=== PATIENT | male | born 1990 | race Caucasian/White ===

== ENCOUNTER 2021-03-04 22:52 | Inpatient (IN) | payer BC, SELFPAY ==
[2021-03-04 22:53] VITALS: BP 153/75; PULSE 127; RESP 16; TEMP 36; O2SAT 91; BMI 38.7
[2021-03-05] VITALS (19 sets, daily range): BP systolic 108–165; BP diastolic 66–101; PULSE 89–118; RESP 18–32; TEMP 35.7–37.4; O2SAT 88–97; BMI 38.5
--- NOTE | 2021-03-05 00:52 | EDS_ITS ---
HPI History of Present Illness Chief Complaint: General Illness Narrative Narrative: Patient presents with Covid-like illness. He stated over the last 4 days he has had muscle aches fatigue intermittent fevers nausea vomiting and diarrhea. Has had a mild sore throat. Has had a mild cough. He stated he has very mild short of breath. No sick contacts. Had a negative Covid test 3 days ago 1 day after the symptoms started. Denies any chronic medical problems. Has had multiple episodes of emesis today. He has had several loose bowel movements. PFSH PFS Home Medications NK 03/05/21 [History Last Taken Unknown] Allergy/AdvReac Type Severity Reaction Status Date / Time No Known Allergies Allergy Verified 03/04/21 22:52 Social History Smoking Status: Never smoker ROS ROS ED ROS Narrative ROS General: See HPI Eyes: Denies visual changes, blurred vision, double vision ENT: See HPI Cardiovascular: Denies chest pain, palpitations, heart racing Respiratory: See HPI GI: See HPI : Denies dysuria, hematuria, frequency Musculoskeletal: See HPI Skin: Denies rash, abscess, abrasions Neuro: Denies headache, see HPI Psych: Denies depression, anxiety Endo: Denies polyuria, polydipsia, polyphagia Heme: Denies easy bruising, easy bleeding, lymphadenopathy Allergy: Denies hives, swelling EXAM Physical Exam Narrative Exam Narrative: Vital signs reviewed General: Well-nourished well-developed. He appears sweaty. Head: Normocephalic atraumatic Eyes: Pupils equal round and reactive to light extraocular movements intact ENT: TMs clear no hemotympanum no trauma Neck: Nontender full range of motion Cardiovascular: Regular tachycardia with normal no murmurs normal S1-S2 Respiratory: No distress clear to auscultation bilaterally chest nontender Abdomen: Soft nontender nondistended normal bowel sounds no masses Back: Nontender no CVA tenderness Extremities: Nontender active range of motion ?4 extremities no trauma Skin: Normal color no trauma Neuro alert oriented cranial nerves II through XII intact normal strength sensation reflexes Const Vital Signs: 03/04/21 22:53 03/05/21 00:44 03/05/21 01:00 Temperature 96.8 F L Temperature Source Temporal Pulse Rate 127 H Respiratory Rate 16 20 H Respiratory Effort Normal Non-Labored Respiratory Pattern Normal Blood Pressure 153/75 H Blood Pressure Mean 101 Pulse Ox 91 Oxygen Delivery Method Room Air Room Air Oxygen Flow Rate (L/min) 03/05/21 04:09 03/05/21 04:10 Temperature Temperature Source Pulse Rate 105 H Respiratory Rate 18 Respiratory Effort Respiratory Pattern Blood Pressure 108/70 Blood Pressure Mean 82 Pulse Ox 88 95 Oxygen Delivery Method Room Air Nasal Cannula Oxygen Flow Rate (L/min) 2 MDM MDM MDM Narrative Medical decision making narrative: IV established given IV fluids. Given Zofran and Toradol. Lab work and chest x-ray obtained. Lab work shows normal CBC. Glucose is 220. Covid antigen negative. Covid antibody positive. Chest x-ray shows pneumonitis picture. Requiring oxygen via nasal cannula to keep his pulse ox above 90% as he dipped down into 88 %. Heart rate came down to 105 after treatment with IV fluids. Resting more comfortably. Due to his hypoxia and Covid pneumonitis discussed with the hospitalist for admission Lab Data Labs: Laboratory Results - last 24 hr 03/05/21 03/05/21 03/05/21 00:50 00:50 02:02 WBC 6.1 RBC 5.45 Hgb 15.8 Hct 46.4 MCV 85.1 MCH 29.0 MCHC 34.1 RDW Std Deviation 40.0 RDW Coeff of Aime 13.1 Plt Count 156 MPV 9.3 Immature Gran % (Auto) 1.000 H Neut % (Auto) 88.1 H Lymph % (Auto) 6.9 L [place] % (Auto) 3.6 Eos % (Auto) 0.2 Baso % (Auto) 0.2 Absolute Neuts (auto) 5.4 Absolute Lymphs (auto) 0.42 L Nucleated RBC % 0 Sodium 139 Potassium 3.5 Chloride 104 Carbon Dioxide 27.0 Anion Gap 8 BUN 11 Creatinine 0.97 Estim Creat Clear Calc 106.75 Est GFR (MDRD) Af Amer 116 Est GFR (MDRD) Non-Af 96 BUN/Creatinine Ratio 11.3 Glucose 220 H Calcium 8.9 Total Bilirubin 0.90 AST 29 ALT 33 Alkaline Phosphatase 102 Total Protein 8.0 Albumin 3.5 Globulin 4.5 H Albumin/Globulin Ratio 0.8 L Lipase 78 COVID-19 (SANDRA) Detected Radiography Diagnostic Testing: Radiology Impression Chest X-Ray 03/05/21 01:00 IMPRESSION: Multifocal pneumonitis as described. Electronically Signed: Chelsey Archer MD at 1:41 EDT , Service support , Discharge Plan Triage Chief Complaint: General Illness ED Provider: Bg Watkins Dx/Rx/DC Orders Clinical Impression: Pneumonia due to coronavirus disease 2019, Hypoxia Prescriptions: No Action NK RF: 0 Primary Care Provider: Care Physician,No Primary Referrals: Care Physician,No Primary [Primary Care Provider] - Disposition Disposition: Acute Care Hospital [facility]
--- NOTE | 2021-03-05 01:00 | RAD_ITS ---
STUDY: X-RAY CHEST REASON FOR EXAM: Male, 30 years old. cough TECHNIQUE: Single AP portable view of the chest. COMPARISON: None. FINDINGS: The lungs are underexpanded with bilateral perihilar and basilar opacities consistent with multifocal pneumonitis. There is no demonstrated pleural abnormality. There is borderline cardiomegaly. Normal mediastinum and elena. Normal visualized pulmonary arteries. Normal visualized aortic arch and descending thoracic aorta. Normal visualized thoracic spine. Normal visualized ribs, clavicles, and shoulders. There is no demonstrated abnormality of the visualized soft tissue structures of the upper abdomen. RAD/Chest 1 View (Portable) IMPRESSION: Multifocal pneumonitis as described. Electronically Signed: Chelsey Archer MD at 1:41 EDT , Service support ,
[2021-03-05 01:01] LABS: Absolute Lymphocyte Count 0.42 X10^3/uL (0.83-4.51); Absolute Neutrophil Count 5.4 X10^3/uL (2.0-7.7); Basophil# 0.01 X10^3/uL; Basophil% 0.2 % (0-1); Differential Indicated SCAN CRITERIA MET; Eosinophil# 0.01 X10^3/uL; Eosinophils% 0.2 % (0-5); Hematocrit 46.4 % (40-54); Hemoglobin 15.8 g/dL (13.0-16.5); Lymphocyte # 0.42 X10^3/ul (0.83-4.51); Lymphocyte % 6.9 % (19-41); Mean Corp Hgb Conc 34.1 g/dL (32-36); Mean Corpuscular Volume 85.1 fL (80-94); Mean Platelet Vol. 9.3 fl (6.2-12.0); Monocyte# 0.22 X10^3/uL; Monocyte% 3.6 % (0-10); NRBC Flagged by Analyzer 0 % (0-5); Neutrophil # 5.39 X10^3/uL (2.7-7.7); Neutrophil % 88.1 % (47-70); POSITIVE DIFFERENTIAL YES; Platelet Count 156 K/mm3 (150-450); RBC Distribution Width CV 13.1 % (11.6-14.6); Red Blood Count 5.45 M/mm3 (4.6-6.2); White Blood Count 6.1 K/mm3 (4.4-11.0)
[2021-03-05] MEDS: 0.9% Normal Saline 1,000 ML 999 ML IV ×2 (01:09→03:09)
[2021-03-05] MEDS: Ketorolac 15 MG/ML Vial IV (01:09)
[2021-03-05] MEDS: Ondansetron 4 MG/2 ML Vial IV ×2 (01:09→18:17)
[2021-03-05 01:19] LABS: ALB/GLOB Ratio 0.8 RATIO (0.9-2.4); AST(SGOT) 29 U/L (15-37); Alanine Aminotransfer ALT/SGPT 33 U/L (16-61); Albumin, Serum 3.5 g/dL (3.2-5.0); Alkaline Phosphatase 102 U/L (45-117); Anion Gap 8 (5-15); BUN 11 mg/dL (7-18); BUN/Creat Ratio 11.3 RATIO (10-20); Calcium,Total 8.9 mg/dL (8.5-10.1); Chloride 104 mmol/L (98-107); Creatinine, Serum 0.97 mg/dL (0.70-1.30); EST Glomerular Filtration Rate 96 mL/min (>60); Est Glom Filt Rate - Afr Amer 116 mL/min (>60); Estimated Creatinine Clearance 106.75 ml/min; Globulin 4.5 g/dL (2.2-4.2); Glucose 220 mg/dL (74-106); Lipase 78 U/L (73-393); Potassium 3.5 mmol/L (3.5-5.1); Sodium Level 139 mmol/L (136-145)
--- NOTE | 2021-03-05 05:15 | HP.PCM.HOS_ITS ---
HPI - General General Date of Admission: 03/05/21 Date of Service: 03/05/21 Chief Complaint: Cough, fever, vomiting HPI Narrative NGHIA HERNANDEZ, is a 30 M who presents to the emergency room at [facility] with a chief complaint of fever, nonproductive cough, and vomiting, the symptoms started 3 days ago. Work-up in the emergency room included a CBC which was unremarkable, chemistry profile was remarkable for a glucose of 220, patient had a chest x-ray performed which showed bilateral infiltrates, and the patient's COVID-19 rapid antigen test was positive. Patient required 2 L of oxygen to maintain his pulse ox above 88%. Patient will be admitted to PCU for COVID-19 pneumonia, he will receive remdesivir and dex amethasone. COUNT INCLUDES THE [facility] Home Medications NK 03/05/21 [History Last Taken Unknown] Allergy/AdvReac Type Severity Reaction Status Date / Time No Known Allergies Allergy Verified 03/04/21 22:52 no significant family history no surgical history Social History Smoking Status: Never smoker ROS Constitutional Constitutional: Reports fatigue, fever(s), malaise and weakness; Denies anorexia, change in weight or night sweats Eyes Eyes: Denies blurry vision, change in vision, discharge from eye(s) or eye pain Cardiovascular Cardiovascular: Reports dyspnea on exertion; Denies chest pain, claudication, edema or palpitations Respiratory/Chest Respiratory/Chest: Reports cough, dyspnea and shortness of breath with exertion; Denies hemoptysis or shortness of breath at rest Gastrointestinal Gastrointestinal: Reports nausea and vomiting; Denies abdominal pain, constipation, diarrhea, hematemesis, hematochezia or melena Genitourinary Genitourinary: Denies dysuria, hematuria, urinary frequency, urinary hesitancy, urinary incontinence or urinary urgency Musculoskeletal Musculoskeletal: Denies back pain, joint pain, joint stiffness, joint swelling, myalgias or neck pain Neurologic Neurologic: Denies abnormal gait, abnormal speech, dizziness, focal weakness, headache(s), loss of vision, numbness, other visual disturbances, paresthesias, syncope or tingling Psychiatric Psychiatric: Denies anxiety, cognitive impairment, depression, irritability, mood swings or suicidal ideation Endocrine Endocrinology: Denies change in body appearance, cold intolerance, excessive sweating, heat intolerance, polydipsia or polyuria Hematologic/Lymphatic Hematologic/Lymphatic: Denies none, anemia, easy bleeding, easy bruising or lymphadenopathy Allergic/Immunologic Allergic/Immunologic: Denies rhinitis, urticaria, eczemia or asthma Vital Signs Vital Signs Vital Signs: 03/04/21 22:53 03/05/21 00:44 03/05/21 01:00 Temperature 96.8 F L Temperature Source Temporal Pulse Rate 127 H Respiratory Rate 16 20 H Respiratory Effort Normal Non-Labored Respiratory Pattern Normal Blood Pressure 153/75 H Blood Pressure Mean 101 Pulse Ox 91 Oxygen Delivery Method Room Air Room Air Oxygen Flow Rate (L/min) 03/05/21 04:09 03/05/21 04:10 Temperature Temperature Source Pulse Rate 105 H Respiratory Rate 18 Respiratory Effort Respiratory Pattern Blood Pressure 108/70 Blood Pressure Mean 82 Pulse Ox 88 95 Oxygen Delivery Method Room Air Nasal Cannula Oxygen Flow Rate (L/min) 2 Weight Weight: 115.666 kg Body Mass Index (BMI) 38.7 Physical Exam Const alert, oriented x3, no apparent distress and healthy appearing General Appearance: cooperative, well kempt and well developed Orientation / Consciousness: awake, oriented to person, oriented to place and oriented to time HEENT normocephalic and moist oral mucous membranes Eyes PERRL, EOMs intact bilaterally and conjunctivae normal Neck nuchal rigidity, supple, no JVD, thyroid normal and no carotid bruits General: trachea midline Resp normal respiratory effort, no retractions and no use of accessory muscles Resp Narrative: Bilateral rales are noted on inspiration Auscultation: crackles bilateral and rales; Negative for rhonchi or wheezes Cardio regular rate, regular rhythm, S1 normal heart sound, S2 normal heart sound, no murmurs, no rub and no gallops GI normal to inspection, nondistended, normoactive bowel sounds, soft to palpation, non-tender and non-distended Extremity normal to inspection, full ROM and no clubbing, cyanosis or edema Skin no rashes or lesions noted, no wounds, skin turgor normal and no jaundice General Skin Exam: no breakdown Neuro oriented x3, CN's II-XII intact bilaterally, no focal motor deficits and no sensory deficits noted Sensorium / Orientation: awake and alert Speech: speech normal Motor Exam: strength 5/5 throughout Psych thought process normal and affect normal Lab / Micro Data Result Diagrams: 03/05/21 00:50 03/05/21 00:50 Labs: Laboratory Results - last 24 hr 03/05/21 03/05/21 03/05/21 00:50 00:50 02:02 WBC 6.1 RBC 5.45 Hgb 15.8 Hct 46.4 MCV 85.1 MCH 29.0 MCHC 34.1 RDW Std Deviation 40.0 RDW Coeff of Aime 13.1 Plt Count 156 MPV 9.3 Immature Gran % (Auto) 1.000 H Neut % (Auto) 88.1 H Lymph % (Auto) 6.9 L [place] % (Auto) 3.6 Eos % (Auto) 0.2 Baso % (Auto) 0.2 Absolute Neuts (auto) 5.4 Absolute Lymphs (auto) 0.42 L Nucleated RBC % 0 Sodium 139 Potassium 3.5 Chloride 104 Carbon Dioxide 27.0 Anion Gap 8 BUN 11 Creatinine 0.97 Estim Creat Clear Calc 106.75 Est GFR (MDRD) Af Amer 116 Est GFR (MDRD) Non-Af 96 BUN/Creatinine Ratio 11.3 Glucose 220 H Calcium 8.9 Total Bilirubin 0.90 AST 29 ALT 33 Alkaline Phosphatase 102 Total Protein 8.0 Albumin 3.5 Globulin 4.5 H Albumin/Globulin Ratio 0.8 L Lipase 78 COVID-19 (SANDRA) Detected Micro: Microbiology 03/05/21 00:55 SARS-CoV-2 Antigen (Rapid) - Final Nasal Secretion Radiology Impression Chest X-Ray 03/05/21 01:00 IMPRESSION: Multifocal pneumonitis as described. Electronically Signed: Chelsey Archer MD at 1:41 EDT , Service support , Assessment & Plan Assessment/Plan (1) Pneumonia due to coronavirus disease 2019: PLAN: 1. COVID-19 pneumonia-patient will be admitted to PCU, remdesivir and dexamethasone will be administered, patient will be placed on Lovenox 40 mg twice daily subcu for DVT prophylaxis. #2 hypoxia secondary to COVID-19 pneumonia-pulse ox will be monitored, patient currently needs 2 L of oxygen #3 type 2 diabetes-new onset-patient states that the last physician he saw years ago indicated he might have diabetes, patient does not go to a family practitioner routinely. Patient will be placed on sliding scale insulin and a diabetic diet. He will need to be seen by dietary before he is discharged. Visit Charges Inpatient E&M: 37571 Init Hosp L3
[2021-03-05] MEDS: guaiFENesin Dm 10 ML UDC PO ×3 (05:38→19:50)
[2021-03-05] MEDS: 0.9% Normal Saline 1,000 ML 100 ML IV ×2 (06:12→17:34)
[2021-03-05] MEDS: Insulin Lispro 100 UNIT/ML INSULN.PEN SC ×4 (08:41→19:39)
[2021-03-05] MEDS: dexAMETHasone 2 MG TABLET 6 MG PO (08:42)
[2021-03-05] MEDS: Enoxaparin 40 MG/0.4 ML Syringe SC ×2 (08:42→19:36)
[2021-03-05] MEDS: Acetaminophen 325 MG Tablet 650 MG PO ×2 (08:47→19:49)
[2021-03-05 09:30] LABS: Bedside Glucose 186 mg/dL (70-110)
[2021-03-05 09:50] LABS: Hemoglobin A1c 8.3 % (3.8-5.6)
--- NOTE | 2021-03-05 11:23 | PN.HOSP_ITS ---
Subjective Subjective Patient seen and examined. He was admitted with a complaint of shortness of breath and cough. He tested positive for COVID-19. He has been managed for acute hypoxic respiratory symptoms due to COVID-19 infection. He has not had both Covid vaccines. He denies any complaints today and feels much fever and shortness of breath is getting better. Review of systems otherwise negative. Objective Data Objective Data Vital Signs: Vital Signs Temp Pulse Resp BP Pulse Ox 96.3 F L 112 H 18 152/91 H 92 03/05/21 11:16 03/05/21 11:16 03/05/21 11:16 03/05/21 11:16 03/05/21 11:16 Oxygen Flow Rate (L/min) 6 Oxygen Delivery Method Nasal Cannula Weight: 253 lb 8.505 oz Body Mass Index (BMI) 38.5 Intake & Output: Intake and Output for Last 24 Hours 03/03/21 03/04/21 03/05/21 23:59 23:59 23:59 Intake Total 2251.67 / 2251.67 Output Total 500 / 500 Balance 1751.67 / 1751.67 Lab / Micro Data Result Diagrams: 03/05/21 00:50 03/05/21 00:50 Labs: Laboratory Results - last 24 hr 03/05/21 03/05/21 03/05/21 00:50 00:50 00:50 WBC 6.1 RBC 5.45 Hgb 15.8 Hct 46.4 MCV 85.1 MCH 29.0 MCHC 34.1 RDW Std Deviation 40.0 RDW Coeff of Aime 13.1 Plt Count 156 MPV 9.3 Immature Gran % (Auto) 1.000 H Neut % (Auto) 88.1 H Lymph % (Auto) 6.9 L [place] % (Auto) 3.6 Eos % (Auto) 0.2 Baso % (Auto) 0.2 Absolute Neuts (auto) 5.4 Absolute Lymphs (auto) 0.42 L Nucleated RBC % 0 Sodium 139 Potassium 3.5 Chloride 104 Carbon Dioxide 27.0 Anion Gap 8 BUN 11 Creatinine 0.97 Estim Creat Clear Calc 106.75 Est GFR (MDRD) Af Amer 116 Est GFR (MDRD) Non-Af 96 BUN/Creatinine Ratio 11.3 Glucose 220 H Hemoglobin A1c 8.3 H Calcium 8.9 Total Bilirubin 0.90 AST 29 ALT 33 Alkaline Phosphatase 102 Total Protein 8.0 Albumin 3.5 Globulin 4.5 H Albumin/Globulin Ratio 0.8 L Lipase 78 COVID-19 (SANDRA) POC Glucose 03/05/21 03/05/21 02:02 08:30 WBC RBC Hgb Hct MCV MCH MCHC RDW Std Deviation RDW Coeff of Aime Plt Count MPV Immature Gran % (Auto) Neut % (Auto) Lymph % (Auto) [place] % (Auto) Eos % (Auto) Baso % (Auto) Absolute Neuts (auto) Absolute Lymphs (auto) Nucleated RBC % Sodium Potassium Chloride Carbon Dioxide Anion Gap BUN Creatinine Estim Creat Clear Calc Est GFR (MDRD) Af Amer Est GFR (MDRD) Non-Af BUN/Creatinine Ratio Glucose Hemoglobin A1c Calcium Total Bilirubin AST ALT Alkaline Phosphatase Total Protein Albumin Globulin Albumin/Globulin Ratio Lipase COVID-19 (SANDRA) Detected POC Glucose 186 H Micro: Microbiology 03/05/21 00:55 Nasal Secretion SARS-CoV-2 Antigen (Rapid) - Final Radiography Diagnostic Testing: Radiology Impression Chest X-Ray 03/05/21 01:00 IMPRESSION: Multifocal pneumonitis as described. Electronically Signed: Chelsey Archer MD at 1:41 EDT , Service support , Physical Exam Const alert, oriented x3 and no apparent distress Exam Limitations: no limitations HEENT head/scalp atraumatic and moist oral mucous membranes Head and Scalp: normocephalic Eyes PERRL, EOMs intact bilaterally and conjunctivae normal Neck no lymphadenopathy, supple, no JVD and no carotid bruits Resp Resp Narrative: mildly diminished breath sounds bibasally, no wheezes or crackles. on 2L of oxygen. Cardio regular rate, regular rhythm and S1 normal heart sound GI normal to inspection, nondistended, normoactive bowel sounds, soft to palpation, non-tender and non-distended Extremity normal to inspection, full ROM and no clubbing, cyanosis or edema Peripheral Pulses: Yes pulses 2+ throughout Skin no rashes or lesions noted Neuro oriented x3 Sensorium / Orientation: awake and alert Psych affect normal Assessment & Plan Assessment/Plan (1) Hypoxia: (2) COVID-19: PLAN: #Acute hypoxic respiratory insufficiency due to COVID 19 infection * Currently on 2 L of oxygen. Will titrate oxygen to maintain saturation above 90%. Continue remdesivir and Decadron. * ID consulted. Await recs. * #Type 2 diabetes mellitus * Insulin sliding scale. Accu-Cheks AC at bedtime. * A1c is 8.3. We will start patient on p.o. Metformin. * DVT prophylaxis: On Lovenox
[2021-03-05 11:40] LABS: Bedside Glucose 261 mg/dL (70-110)
--- NOTE | 2021-03-05 12:40 | CASEMGMT ---
MAXWELL WHYTE ASSESSMENT Pt in COVID precautions. MAXWELL WHYTE placed call to pt's room for initial transition planning/care coordination assessment. MAXWELL WHYTE introduced self and role at [facility]. Pt voices understanding and consents to assessment at this time. Pt is A/O at this time and answers all questions appropriately. Care providers, pharmacy, and demographics verified/updated at this time. PCP: No PCP. Pt states would be agreeable to taking a list of local PCP's. List given to Zohra ARREOLA, to give to pt. Specialists: None Preferred Pharmacy:[facility] Insurance: [place] Prescription Benefit: Pt states, I think so. Living Will/HPOA: Pt does not currently have LW/HCPOA and declines info at this time. Pt made aware that he can contact SW as an out-pt and make appt in the future if he decides he would like to talk with someone about this or would like to utilize [facility] social work for advanced directive completion. Pt expresses understanding. Given [employer] card with information and contact number to Zohra ARREOLA, to give to pt. LNOK: , Mercedes Tong Living Arrangements: Lives w/ in ranch-style home w/1 step to enter. Independent. is not ill and has had her COVID vaccines. Reviewed COVID isolation precautions w/pt. DME: Denies using any DME. Pt does not have home O2. Reviewed local DME companies consistent with the patient's preferred geographic region, medical needs, and insurance network. The pt's states he has no preference. Made aware [facility] is an affiliate of [facility] and states [place]. Pt also does not have a glucometer. Made aware, if glucometer is needed @ d/c, that he can be provided w/a script for a glucometer that he can get through insurance. Also made aware of inexpensive [employer] brand @ [employer]. HHC/SNF: No history of either. No needs identified. Pt wishes to return home and states has no concerns with going home at time of discharge. CM to follow for home oxygen needs and any further discharge planning/needs. Pt voices no further concerns/needs at this time. Advised pt to ask for CM if any further questions/concerns/needs arise. Voices understanding. PLAN: Home w/. Follow for any O2 needs @ d/c Follow for possible need of glucometer. DGiauque BSN RN CM
[2021-03-05] MEDS: metFORMIN HCl 500 MG Tablet PO (16:56)
[2021-03-05 17:46] LABS: Bedside Glucose 260 mg/dL (70-110)
--- NOTE | 2021-03-05 19:51 | NURSING ---
Po 90-91% on 02 at 7lnc. Pt switch to [place] with 9l 02
[2021-03-05 21:20] LABS: Bedside Glucose 214 mg/dL (70-110)
--- NOTE | 2021-03-05 21:30 | NURSING ---
)2 at 10l hi camilla Po 94%
[2021-03-06] VITALS (13 sets, daily range): BP systolic 104–142; BP diastolic 59–87; PULSE 86–103; RESP 18–24; TEMP 36.6–38; O2SAT 89–97
[2021-03-06] MEDS: 0.9% Normal Saline 1,000 ML 100 ML IV (03:44)
[2021-03-06] MEDS: 0.9% Saline Lock 10 ML Syringe IV (03:45)
[2021-03-06] MEDS: guaiFENesin Dm 10 ML UDC PO ×2 (03:49→21:29)
[2021-03-06] MEDS: Acetaminophen 325 MG Tablet 650 MG PO (03:49)
[2021-03-06 04:01] LABS: Hematocrit 44.4 % (40-54); Hemoglobin 14.6 g/dL (13.0-16.5); Mean Corp Hgb Conc 32.9 g/dL (32-36); Mean Corpuscular Hgb 28.8 pg (27.0-32.0); Mean Corpuscular Volume 87.6 fL (80-94); Mean Platelet Vol. 9.4 fl (6.2-12.0); Platelet Count 172 K/mm3 (150-450); RBC Distribution Width CV 13.2 % (11.6-14.6); RBC Distribution Width SD 42.3 fl (35.1-43.9); Red Blood Count 5.07 M/mm3 (4.6-6.2); White Blood Count 5.9 K/mm3 (4.4-11.0)
[2021-03-06 04:17] LABS: ALB/GLOB Ratio 0.7 RATIO (0.9-2.4); AST(SGOT) 26 U/L (15-37); Alanine Aminotransfer ALT/SGPT 29 U/L (16-61); Alkaline Phosphatase 96 U/L (45-117); Anion Gap 7 (5-15); BUN 10 mg/dL (7-18); BUN/Creat Ratio 10.5 RATIO (10-20); Calcium,Total 8.3 mg/dL (8.5-10.1); Chloride 106 mmol/L (98-107); Creatinine, Serum 0.95 mg/dL (0.70-1.30); EST Glomerular Filtration Rate 98 mL/min (>60); Est Glom Filt Rate - Afr Amer 119 mL/min (>60); Globulin 4.3 g/dL (2.2-4.2); Glucose 188 mg/dL (74-106); Protein, Total 7.3 g/dL (6.4-8.2); Sodium Level 141 mmol/L (136-145)
--- NOTE | 2021-03-06 07:24 | PN.HOSP_ITS ---
Subjective Subjective Patient seen and examined. He feels more short of breath. He is now requiring 10L of oxygen by nasal canula. he also had a fever of 100.4F. Objective Data Objective Data Vital Signs: Vital Signs Temp Pulse Resp BP Pulse Ox 100.4 F H 95 18 120/69 97 03/06/21 03:54 03/06/21 03:54 03/06/21 03:54 03/06/21 03:54 03/06/21 03:54 Oxygen Flow Rate (L/min) 10 Oxygen Delivery Method Nasal Cannula Weight: 253 lb 8.505 oz Body Mass Index (BMI) 38.5 Intake & Output: Intake and Output for Last 24 Hours 03/04/21 03/05/21 03/06/21 23:59 23:59 23:59 Intake Total 3375.00 / 3375.00 1240 / 1240 Output Total 1800 / 1800 Balance 1575.00 / 1575.00 1240 / 1240 Lab / Micro Data Result Diagrams: 03/06/21 03:45 03/06/21 03:45 Labs: Laboratory Results - last 24 hr 03/05/21 03/05/21 03/05/21 00:50 08:30 11:08 WBC RBC Hgb Hct MCV MCH MCHC RDW Std Deviation RDW Coeff of Amie Plt Count MPV Sodium Potassium Chloride Carbon Dioxide Anion Gap BUN Creatinine Estim Creat Clear Calc Est GFR (MDRD) Af Amer Est GFR (MDRD) Non-Af BUN/Creatinine Ratio Glucose Hemoglobin A1c 8.3 H Calcium Total Bilirubin AST ALT Alkaline Phosphatase Total Protein Albumin Globulin Albumin/Globulin Ratio POC Glucose 186 H 261 H 03/05/21 03/05/21 03/06/21 16:56 19:38 03:45 WBC RBC Hgb Hct MCV MCH MCHC RDW Std Deviation RDW Coeff of Aime Plt Count MPV Sodium 141 Potassium 4.0 Chloride 106 Carbon Dioxide 28.0 Anion Gap 7 BUN 10 Creatinine 0.95 Estim Creat Clear Calc 109.00 Est GFR (MDRD) Af Amer 119 Est GFR (MDRD) Non-Af 98 BUN/Creatinine Ratio 10.5 Glucose 188 H Hemoglobin A1c Calcium 8.3 L Total Bilirubin 0.60 AST 26 ALT 29 Alkaline Phosphatase 96 Total Protein 7.3 Albumin 3.0 L Globulin 4.3 H Albumin/Globulin Ratio 0.7 L POC Glucose 260 H 214 H 03/06/21 03:45 WBC 5.9 RBC 5.07 Hgb 14.6 Hct 44.4 MCV 87.6 MCH 28.8 MCHC 32.9 RDW Std Deviation 42.3 RDW Coeff of Aime 13.2 Plt Count 172 MPV 9.4 Sodium Potassium Chloride Carbon Dioxide Anion Gap BUN Creatinine Estim Creat Clear Calc Est GFR (MDRD) Af Amer Est GFR (MDRD) Non-Af BUN/Creatinine Ratio Glucose Hemoglobin A1c Calcium Total Bilirubin AST ALT Alkaline Phosphatase Total Protein Albumin Globulin Albumin/Globulin Ratio POC Glucose Micro: Microbiology 03/05/21 00:55 Nasal Secretion SARS-CoV-2 Antigen (Rapid) - Final Physical Exam Const alert, oriented x3, no apparent distress and healthy appearing General Appearance: cooperative, well kempt and well developed Orientation / Consciousness: awake, oriented to person, oriented to place and oriented to time Exam Limitations: no limitations HEENT normocephalic, head/scalp atraumatic and moist oral mucous membranes Eyes PERRL, EOMs intact bilaterally and conjunctivae normal Neck nuchal rigidity, no lymphadenopathy, supple, no JVD, thyroid normal and no carotid bruits General: trachea midline Resp normal respiratory effort, no retractions and no use of accessory muscles Resp Narrative: mildly diminished breath sounds bibasally, no wheezes or crackles. now on 10L of oxygen. Auscultation: crackles bilateral and rales; Negative for rhonchi or wheezes Cardio regular rate, regular rhythm, S1 normal heart sound, S2 normal heart sound, no murmurs, no rub and no gallops GI normal to inspection, nondistended, normoactive bowel sounds, soft to palpation, non-tender and non-distended Extremity normal to inspection, full ROM and no clubbing, cyanosis or edema Skin no rashes or lesions noted, no wounds, skin turgor normal and no jaundice General Skin Exam: no breakdown Neuro oriented x3, CN's II-XII intact bilaterally, no focal motor deficits and no sensory deficits noted Sensorium / Orientation: awake and alert Speech: speech normal Motor Exam: strength 5/5 throughout Psych thought process normal and affect normal Assessment & Plan Assessment/Plan (1) Hypoxia: (2) COVID-19: PLAN: #Acute hypoxic respiratory failure due to COVID 19 infection * now on 10L of oxygen by nasal canula. on remdesivir an d decadron * consult critical care * titrate oxygen to maintain sats >90% * consult ID * #Type 2 diabetes mellitus * Insulin sliding scale. Accu-Cheks AC at bedtime. * A1c is 8.3. on PO metformin * DVT prophylaxis: On Lovenox Visit Charges Inpatient E&M: 95442 Subs Hosp L3
--- NOTE | 2021-03-06 08:11 | CON.PCM.CC_ITS ---
Assessment & Plan Assessment/Plan (1) Acute hypoxemic respiratory failure: (2) COVID-19: PLAN: RECOMMENDATIONS: 1. Wean supplemental oxygen to maintain saturations at or above 90%. 2. Continue Decadron to complete 10-day treatment course. 3. Continue remdesivir as ordered. Continue to monitor liver and renal function. 4. Check D-dimer and procalcitonin level. 5. Continue Lovenox as ordered. IMPRESSIONS: 1. Acute hypoxemic respiratory failure secondary to COVID-19 pneumonia The patient presented to the hospital with Covid-like symptoms which began within the last week. Chest imaging did reveal bilateral infiltrates and the patient subsequently tested positive for coronavirus. The patient will be continued on supplemental oxygen with a goal to maintain saturations at or above 90%. Plan to continue Decadron to complete 10-day treatment course. Continue remdesivir as ordered. Continue to monitor liver and renal function. Continue twice daily dosing of Lovenox. Check D-dimer and pro calcitonin level today. 2. Obesity/diabetes mellitus Complicates care, management, recovery and prognosis. Continue home medications as indicated. CODE status: Discussed CODE status at length including difference between FULL code, DNR-CCA and DNR-CC status. Following discussions about the differences in these status, patient requested FULL CODE STATUS. Advanced Care Planning Face to Face Time: 12 minutes This note was generated with [employer] dictation software. It may contain incorrect words, spelling, and punctuation that were not noted in checking the note before signing. HPI Consult Data Date of Consult: 03/06/21 HPI Narrative Reason for Consultation: Acute hypoxemic respiratory failure secondary to COVID- 19 pneumonia HPI Narrative: The patient is a 30-year-old male, with a history as outlined below, who presented to the emergency department on March 05 with complaints of cough and shortness of breath. The patient then reported that he began to have a fever this past Wednesday. He denies any known recent sick contact exposure. The patient is yet to receive his coronavirus vaccination. On presentation to the emergency department, the patient was noted to be afebrile but was tachycardic and tachypneic. Laboratory evaluation revealed a normal white blood cell count. Chemistry profile was unremarkable. Chest x-ray revealed multifocal airspace opacities. Coronavirus PCR was completed and found to be positive. The patient was subsequently placed on supplemental IV fluid hydration and was initiated on remdesivir and Decadron. [facility] Home Medications NK 03/05/21 [History Last Taken Unknown] Allergy/AdvReac Type Severity Reaction Status Date / Time No Known Allergies Allergy Verified 03/04/21 22:52 Social History Smoking Status: Never smoker ROS Constitutional Constitutional: Reports body ache(s), chills, fatigue and fever(s) Eyes Eyes: Denies blurry vision or change in vision ENT HEENT: Reports headache(s); Denies dizziness Cardiovascular Cardiovascular: Reports dyspnea; Denies chest pain or dizziness Respiratory/Chest Respiratory/Chest: Reports cough Gastrointestinal Gastrointestinal: Denies abdominal pain Genitourinary Genitourinary: Denies difficulty urinating Musculoskeletal Musculoskeletal: Denies arthralgias or back pain Integumentary Integumentary: Denies lesions, rash or skin ulcer Neurologic Neurologic: Denies abnormal gait, abnormal speech or confusion Psychiatric Psychiatric: Denies anxiety or depression Endocrine Endocrinology: Reports fatigue Hematologic/Lymphatic Hematologic/Lymphatic: Denies easy bleeding or easy bruising Physical Exam Const alert General Appearance: cooperative and ill appearing Nutritional Appearance: obese HEENT normocephalic, head/scalp atraumatic and moist oral mucous membranes Eyes PERRL, EOMs intact bilaterally and conjunctivae normal Neck supple General: trachea midline Resp Effort and Inspection: able to speak in complete sentences and tachypneic Auscultation: diminished lung sounds; Negative for rales, rhonchi or wheezes Cardio regular rate and regular rhythm GI normal to inspection, nondistended, normoactive bowel sounds Extremity no clubbing, cyanosis or edema Skin no rashes or lesions noted Neuro oriented x3, CN's II-XII intact bilaterally and moves all extremities Lab / Micro Data Result Diagrams: 03/06/21 03:45 03/06/21 03:45 Labs: Laboratory Results - last 24 hr 03/05/21 03/05/21 03/05/21 00:50 08:30 11:08 WBC RBC Hgb Hct MCV MCH MCHC RDW Std Deviation RDW Coeff of Aime Plt Count MPV Sodium Potassium Chloride Carbon Dioxide Anion Gap BUN Creatinine Estim Creat Clear Calc Est GFR (MDRD) Af Amer Est GFR (MDRD) Non-Af BUN/Creatinine Ratio Glucose Hemoglobin A1c 8.3 H Calcium Total Bilirubin AST ALT Alkaline Phosphatase Total Protein Albumin Globulin Albumin/Globulin Ratio POC Glucose 186 H 261 H 03/05/21 03/05/21 03/06/21 16:56 19:38 03:45 WBC RBC Hgb Hct MCV MCH MCHC RDW Std Deviation RDW Coeff of Aime Plt Count MPV Sodium 141 Potassium 4.0 Chloride 106 Carbon Dioxide 28.0 Anion Gap 7 BUN 10 Creatinine 0.95 Estim Creat Clear Calc 109.00 Est GFR (MDRD) Af Amer 119 Est GFR (MDRD) Non-Af 98 BUN/Creatinine Ratio 10.5 Glucose 188 H Hemoglobin A1c Calcium 8.3 L Total Bilirubin 0.60 AST 26 ALT 29 Alkaline Phosphatase 96 Total Protein 7.3 Albumin 3.0 L Globulin 4.3 H Albumin/Globulin Ratio 0.7 L POC Glucose 260 H 214 H 03/06/21 03:45 WBC 5.9 RBC 5.07 Hgb 14.6 Hct 44.4 MCV 87.6 MCH 28.8 MCHC 32.9 RDW Std Deviation 42.3 RDW Coeff of Aime 13.2 Plt Count 172 MPV 9.4 Sodium Potassium Chloride Carbon Dioxide Anion Gap BUN Creatinine Estim Creat Clear Calc Est GFR (MDRD) Af Amer Est GFR (MDRD) Non-Af BUN/Creatinine Ratio Glucose Hemoglobin A1c Calcium Total Bilirubin AST ALT Alkaline Phosphatase Total Protein Albumin Globulin Albumin/Globulin Ratio POC Glucose Charges/Coding Visit Charges Inpatient E&M: 24374 Init Hosp L3 Multi Select Codes Hospitalists' Procedures Procedures: 87715 Advncd Care Plan 30 Min
[2021-03-06] MEDS: Enoxaparin 40 MG/0.4 ML Syringe SC ×2 (09:12→21:29)
[2021-03-06] MEDS: Insulin Lispro 100 UNIT/ML INSULN.PEN SC ×4 (09:12→21:30)
[2021-03-06] MEDS: metFORMIN HCl 500 MG Tablet PO ×2 (09:15→16:46)
[2021-03-06] MEDS: dexAMETHasone 2 MG TABLET 6 MG PO (09:15)
[2021-03-06 09:25] LABS: Bedside Glucose 200 mg/dL (70-110)
[2021-03-06 09:36] LABS: D-Dimer Quantitative (DVT/PE) 0.86 FEU/ug/m (0.27-0.49)
[2021-03-06 09:58] LABS: Procalcitonin 0.13 ng/mL (0.00-0.09)
[2021-03-06 12:25] LABS: Bedside Glucose 183 mg/dL (70-110)
--- NOTE | 2021-03-06 13:49 | PCM.CONS.GEN ---
Assessment & Plan Assessment/Plan (1) COVID-19: PLAN: Sx started 02/26. On dex, remdesivir. Plan on 10 days dex. 20 days of quarantine from start of symptoms. Recommend vaccine once he is out of quarantine. Will order monitoring labs while he is on remdesivir. Thank you, will follow (2) Acute hypoxemic respiratory failure: HPI Consult Data Date of Consult: 03/06/21 HPI Narrative HPI Narrative: NGHIA HERNANDEZ, is a 30 M who presented with sx since 02/26, c/o aches, cough, fever, headache, not feeling well, loss of appetite. Was signed up to get 1st vaccine dose. is vaccinated and asymptomatic. No change in taste or smell. Came to ED, admitted on dex and remdesivir. Feeling a little better. Full ROS performed and neg except as noted above PFSH Home Medications NK 03/05/21 [History Last Taken Unknown] Allergy/AdvReac Type Severity Reaction Status Date / Time No Known Allergies Allergy Verified 03/04/21 22:52 Social History Smoking Status: Never smoker Physical Exam Const alert, oriented x3 and no apparent distress General Appearance: cooperative Exam Limitations: no limitations HEENT normocephalic and head/scalp atraumatic Eyes PERRL and EOMs intact bilaterally Neck supple and No nodes Resp Auscultation: diminished lung sounds Cardio regular rate and regular rhythm GI normal to inspection, nondistended, normoactive bowel sounds Extremity no clubbing, cyanosis or edema Skin no rashes or lesions noted Lab / Micro Data Result Diagrams: 03/06/21 03:45 03/06/21 03:45 Labs: Laboratory Results - last 24 hr 03/05/21 03/05/21 03/06/21 16:56 19:38 03:45 WBC RBC Hgb Hct MCV MCH MCHC RDW Std Deviation RDW Coeff of Iame Plt Count MPV D-Dimer Quant (PE/DVT) Sodium 141 Potassium 4.0 Chloride 106 Carbon Dioxide 28.0 Anion Gap 7 BUN 10 Creatinine 0.95 Estim Creat Clear Calc 109.00 Est GFR (MDRD) Af Amer 119 Est GFR (MDRD) Non-Af 98 BUN/Creatinine Ratio 10.5 Glucose 188 H Calcium 8.3 L Total Bilirubin 0.60 AST 26 ALT 29 Alkaline Phosphatase 96 Total Protein 7.3 Albumin 3.0 L Globulin 4.3 H Albumin/Globulin Ratio 0.7 L Procalcitonin POC Glucose 260 H 214 H 03/06/21 03/06/21 03/06/21 03:45 09:00 09:00 WBC 5.9 RBC 5.07 Hgb 14.6 Hct 44.4 MCV 87.6 MCH 28.8 MCHC 32.9 RDW Std Deviation 42.3 RDW Coeff of Aime 13.2 Plt Count 172 MPV 9.4 D-Dimer Quant (PE/DVT) 0.86 H* Sodium Potassium Chloride Carbon Dioxide Anion Gap BUN Creatinine Estim Creat Clear Calc Est GFR (MDRD) Af Amer Est GFR (MDRD) Non-Af BUN/Creatinine Ratio Glucose Calcium Total Bilirubin AST ALT Alkaline Phosphatase Total Protein Albumin Globulin Albumin/Globulin Ratio Procalcitonin 0.13 H POC Glucose 03/06/21 03/06/21 09:10 12:15 WBC RBC Hgb Hct MCV MCH MCHC RDW Std Deviation RDW Coeff of Aime Plt Count MPV D-Dimer Quant (PE/DVT) Sodium Potassium Chloride Carbon Dioxide Anion Gap BUN Creatinine Estim Creat Clear Calc Est GFR (MDRD) Af Amer Est GFR (MDRD) Non-Af BUN/Creatinine Ratio Glucose Calcium Total Bilirubin AST ALT Alkaline Phosphatase Total Protein Albumin Globulin Albumin/Globulin Ratio Procalcitonin POC Glucose 200 H 183 H
[2021-03-06 16:15] LABS: Bedside Glucose 292 mg/dL (70-110)
[2021-03-06 23:05] LABS: Bedside Glucose 236 mg/dL (70-110)
[2021-03-07] VITALS (14 sets, daily range): BP systolic 123–138; BP diastolic 82–96; PULSE 82–104; RESP 15–22; TEMP 36.3–36.9; O2SAT 89–96
[2021-03-07 05:36] LABS: Hematocrit 42.3 % (40-54); Hemoglobin 14.4 g/dL (13.0-16.5); Mean Corpuscular Hgb 29.2 pg (27.0-32.0); Mean Corpuscular Volume 85.8 fL (80-94); Mean Platelet Vol. 9.4 fl (6.2-12.0); Platelet Count 217 K/mm3 (150-450); RBC Distribution Width CV 13.2 % (11.6-14.6); RBC Distribution Width SD 41.5 fl (35.1-43.9); Red Blood Count 4.93 M/mm3 (4.6-6.2); White Blood Count 5.4 K/mm3 (4.4-11.0)
--- NOTE | 2021-03-07 05:45 | PCM.PN.INT ---
Assessment & Plan Assessment/Plan (1) Acute hypoxemic respiratory failure: (2) COVID-19: PLAN: RECOMMENDATIONS: 1. Wean supplemental oxygen to maintain saturations at or above 90%. 2. Continue Decadron to complete 10-day treatment course. 3. Continue remdesivir as ordered. Continue to monitor liver and renal function. 4. Continue Lovenox as ordered. 5. Encourage incentive spirometer use and mobilize patient as tolerated. IMPRESSIONS: 1. Acute hypoxemic respiratory failure secondary to COVID-19 pneumonia The patient presented to the hospital with Covid-like symptoms which began within the last week. Chest imaging did reveal bilateral infiltrates and the patient subsequently tested positive for coronavirus. The patient will be continued on supplemental oxygen with a goal to maintain saturations at or above 90%. Plan to continue Decadron to complete 10-day treatment course. Continue remdesivir as ordered. Continue to monitor liver and renal function. Continue twice daily dosing of Lovenox. 2. Obesity/diabetes mellitus Complicates care, management, recovery and prognosis. Continue home medications as indicated. CODE status: Discussed CODE status at length including difference between FULL code, DNR-CCA and DNR-CC status. Following discussions about the differences in these status, patient requested FULL CODE STATUS. This note was generated with [employer] dictation software. It may contain incorrect words, spelling, and punctuation that were not noted in checking the note before signing. Subjective Subjective The patient was seen and examined at the bedside this morning. Events from the last 24 hours have been reviewed. The patient is currently afebrile, hemodynamically stable and maintaining appropriate oxygen saturations on 4 L/min via nasal cannula. The patient is currently documented to be overall net +3.7 L for the hospital admission. He remains on remdesivir, Decadron and twice daily Lovenox. Liver and renal function are stable. Objective Data Objective Data The patient's most recent lab work, culture data and imaging studies have all been personally reviewed. Vital Signs: Vital Signs Temp Pulse Resp BP Pulse Ox 97.9 F 82 15 138/82 H 96 03/07/21 03:04 03/07/21 03:32 03/07/21 03:04 03/07/21 03:04 03/07/21 03:04 Oxygen Flow Rate (L/min) 4.5 Oxygen Delivery Method Nasal Cannula Weight: 253 lb 8.505 oz Body Mass Index (BMI) 38.5 Intake & Output: Intake and Output for Last 24 Hours 03/05/21 03/06/21 03/07/21 23:59 23:59 23:59 Intake Total 3375.00 / 3375.00 2640.00 / 2640.00 800 / 800 Output Total 1800 / 1800 1300 / 1300 Balance 1575.00 / 1575.00 1340.00 / 1340.00 800 / 800 Lab / Micro Data Attestation: I reviewed the patient's lab results. Result Diagrams: 03/07/21 05:20 03/07/21 05:20 Labs: Laboratory Results - last 24 hr 03/06/21 03/06/21 03/06/21 09:00 09:00 09:10 WBC RBC Hgb Hct MCV MCH MCHC RDW Std Deviation RDW Coeff of Aime Plt Count MPV D-Dimer Quant (PE/DVT) 0.86 H* Procalcitonin 0.13 H POC Glucose 200 H 03/06/21 03/06/21 03/06/21 12:15 16:02 21:28 WBC RBC Hgb Hct MCV MCH MCHC RDW Std Deviation RDW Coeff of Aime Plt Count MPV D-Dimer Quant (PE/DVT) Procalcitonin POC Glucose 183 H 292 H 236 H 03/07/21 05:20 WBC 5.4 RBC 4.93 Hgb 14.4 Hct 42.3 MCV 85.8 MCH 29.2 MCHC 34.0 RDW Std Deviation 41.5 RDW Coeff of Aime 13.2 Plt Count 217 MPV 9.4 D-Dimer Quant (PE/DVT) Procalcitonin POC Glucose Micro: Microbiology 03/05/21 00:55 Nasal Secretion SARS-CoV-2 Antigen (Rapid) - Final Physical Exam Const alert General Appearance: cooperative and ill appearing Nutritional Appearance: obese HEENT normocephalic, head/scalp atraumatic and moist oral mucous membranes Eyes PERRL, EOMs intact bilaterally and conjunctivae normal Neck supple General: trachea midline Resp Effort and Inspection: able to speak in complete sentences Auscultation: diminished lung sounds; Negative for rales, rhonchi or wheezes Cardio regular rate and regular rhythm GI normal to inspection, nondistended, normoactive bowel sounds Extremity no clubbing, cyanosis or edema Skin no rashes or lesions noted Neuro oriented x3, CN's II-XII intact bilaterally and moves all extremities Psych cooperative and affect normal Charges/Coding Visit Charges Inpatient E&M: 45481 Subs Hosp L2
[2021-03-07 05:57] LABS: ALB/GLOB Ratio 0.8 RATIO (0.9-2.4); AST(SGOT) 23 U/L (15-37); Alanine Aminotransfer ALT/SGPT 26 U/L (16-61); Albumin, Serum 3.1 g/dL (3.2-5.0); Alkaline Phosphatase 87 U/L (45-117); Anion Gap 5 (5-15); BUN 12 mg/dL (7-18); BUN/Creat Ratio 13.7 RATIO (10-20); Calcium,Total 8.8 mg/dL (8.5-10.1); Chloride 102 mmol/L (98-107); Creatinine, Serum 0.88 mg/dL (0.70-1.30); EST Glomerular Filtration Rate 108 mL/min (>60); Est Glom Filt Rate - Afr Amer 130 mL/min (>60); Estimated Creatinine Clearance 117.67 ml/min; Globulin 4.1 g/dL (2.2-4.2); Glucose 199 mg/dL (74-106); Potassium 3.8 mmol/L (3.5-5.1); Protein, Total 7.2 g/dL (6.4-8.2); Sodium Level 138 mmol/L (136-145)
[2021-03-07] MEDS: Calcium Carbonate 500 MG Tablet 1000 MG PO ×2 (06:00→22:32)
[2021-03-07 06:11] LABS: Bedside Glucose 197 mg/dL (70-110)
[2021-03-07] MEDS: Insulin Lispro 100 UNIT/ML INSULN.PEN SC ×4 (06:36→22:20)
[2021-03-07] MEDS: 0.9% Saline Lock 10 ML Syringe IV (06:37)
--- NOTE | 2021-03-07 07:48 | PN.HOSP_ITS ---
Subjective Subjective Patient seen and examined. He is feeling better today, annd is down to 4.5L of oxygen today. Review of systems is otherwise negative. He is in cumulative positive balance by 4.215L since admission. Objective Data Objective Data Vital Signs: Vital Signs Temp Pulse Resp BP Pulse Ox 97.9 F 82 15 138/82 H 96 03/07/21 03:04 03/07/21 03:32 03/07/21 03:04 03/07/21 03:04 03/07/21 03:04 Oxygen Flow Rate (L/min) 4.5 Oxygen Delivery Method Nasal Cannula Weight: 253 lb 8.505 oz Body Mass Index (BMI) 38.5 Intake & Output: Intake and Output for Last 24 Hours 03/05/21 03/06/21 03/07/21 23:59 23:59 23:59 Intake Total 3375.00 / 3375.00 2640.00 / 2640.00 1300 / 1300 Output Total 1800 / 1800 1300 / 1300 Balance 1575.00 / 1575.00 1340.00 / 1340.00 1300 / 1300 Lab / Micro Data Result Diagrams: 03/07/21 05:20 03/07/21 05:20 Labs: Laboratory Results - last 24 hr 03/06/21 03/06/21 03/06/21 09:00 09:00 09:10 WBC RBC Hgb Hct MCV MCH MCHC RDW Std Deviation RDW Coeff of Aime Plt Count MPV D-Dimer Quant (PE/DVT) 0.86 H* Sodium Potassium Chloride Carbon Dioxide Anion Gap BUN Creatinine Estim Creat Clear Calc Est GFR (MDRD) Af Amer Est GFR (MDRD) Non-Af BUN/Creatinine Ratio Glucose Calcium Total Bilirubin AST ALT Alkaline Phosphatase Total Protein Albumin Globulin Albumin/Globulin Ratio Procalcitonin 0.13 H POC Glucose 200 H 03/06/21 03/06/21 03/06/21 12:15 16:02 21:28 WBC RBC Hgb Hct MCV MCH MCHC RDW Std Deviation RDW Coeff of Aime Plt Count MPV D-Dimer Quant (PE/DVT) Sodium Potassium Chloride Carbon Dioxide Anion Gap BUN Creatinine Estim Creat Clear Calc Est GFR (MDRD) Af Amer Est GFR (MDRD) Non-Af BUN/Creatinine Ratio Glucose Calcium Total Bilirubin AST ALT Alkaline Phosphatase Total Protein Albumin Globulin Albumin/Globulin Ratio Procalcitonin POC Glucose 183 H 292 H 236 H 03/07/21 03/07/21 03/07/21 05:20 05:20 06:01 WBC 5.4 RBC 4.93 Hgb 14.4 Hct 42.3 MCV 85.8 MCH 29.2 MCHC 34.0 RDW Std Deviation 41.5 RDW Coeff of Aime 13.2 Plt Count 217 MPV 9.4 D-Dimer Quant (PE/DVT) Sodium 138 Potassium 3.8 Chloride 102 Carbon Dioxide 31.0 Anion Gap 5 BUN 12 Creatinine 0.88 Estim Creat Clear Calc 117.67 Est GFR (MDRD) Af Amer 130 Est GFR (MDRD) Non-Af 108 BUN/Creatinine Ratio 13.7 Glucose 199 H Calcium 8.8 Total Bilirubin 0.60 AST 23 ALT 26 Alkaline Phosphatase 87 Total Protein 7.2 Albumin 3.1 L Globulin 4.1 Albumin/Globulin Ratio 0.8 L Procalcitonin POC Glucose 197 H Micro: Microbiology 03/05/21 00:55 Nasal Secretion SARS-CoV-2 Antigen (Rapid) - Final Physical Exam Const alert, oriented x3, no apparent distress and healthy appearing General Appearance: cooperative, well kempt and well developed Orientation / Consciousness: awake, oriented to person, oriented to place and oriented to time Exam Limitations: no limitations HEENT normocephalic, head/scalp atraumatic and moist oral mucous membranes Eyes PERRL, EOMs intact bilaterally and conjunctivae normal Neck nuchal rigidity, no lymphadenopathy, supple, no JVD, thyroid normal and no carotid bruits General: trachea midline Resp Resp Narrative: mildly diminished breath sounds bibasally, no wheezes or crackles. now on 4.5L of oxygen. Auscultation: crackles bilateral and rales; Negative for rhonchi or wheezes Cardio regular rate, regular rhythm, S1 normal heart sound, S2 normal heart sound, no murmurs, no rub and no gallops GI normal to inspection, nondistended, normoactive bowel sounds, soft to palpation, non-tender and non-distended Extremity normal to inspection, full ROM and no clubbing, cyanosis or edema Skin no rashes or lesions noted, no wounds, skin turgor normal and no jaundice General Skin Exam: no breakdown Neuro oriented x3, CN's II-XII intact bilaterally, no focal motor deficits and no sensory deficits noted Sensorium / Orientation: awake and alert Speech: speech normal Motor Exam: strength 5/5 throughout Psych thought process normal and affect normal Assessment & Plan Assessment/Plan (1) Hypoxia: (2) COVID-19: PLAN: #Acute hypoxic respiratory failure due to COVID 19 infection * down to 4.5L of oxygen today. on remdesivir and decadron * consult critical care * titrate oxygen to maintain sats >90% * ID on board * #Type 2 diabetes mellitus * Insulin sliding scale. Accu-Cheks AC at bedtime. * A1c is 8.3. on PO metformin * DVT prophylaxis: On Lovenox Charges/Coding Visit Charges Inpatient E&M: 77054 Subs Hosp L3
[2021-03-07] MEDS: Enoxaparin 40 MG/0.4 ML Syringe SC ×2 (08:47→22:20)
[2021-03-07] MEDS: metFORMIN HCl 500 MG Tablet PO ×2 (08:47→16:07)
[2021-03-07] MEDS: dexAMETHasone 2 MG TABLET 6 MG PO (08:47)
[2021-03-07 12:00] LABS: Bedside Glucose 328 mg/dL (70-110)
[2021-03-07 16:21] LABS: Bedside Glucose 323 mg/dL (70-110)
[2021-03-07 23:00] LABS: Bedside Glucose 274 mg/dL (70-110)
[2021-03-08] VITALS (15 sets, daily range): BP systolic 123–146; BP diastolic 70–92; PULSE 75–94; RESP 19–22; TEMP 36.1–36.8; O2SAT 94–98
--- NOTE | 2021-03-08 03:37 | NURSING ---
Please disregard the VS and assessment that was charted for this patient at 0256 and 0257 on 03/08/2021, charted under the wrong patient. This RN will rechart VS and assessment that pertains to this patient.
[2021-03-08 03:42] LABS: Hematocrit 43.3 % (40-54); Hemoglobin 14.5 g/dL (13.0-16.5); Mean Corp Hgb Conc 33.5 g/dL (32-36); Mean Corpuscular Hgb 28.8 pg (27.0-32.0); Mean Corpuscular Volume 85.9 fL (80-94); Mean Platelet Vol. 9.2 fl (6.2-12.0); Platelet Count 246 K/mm3 (150-450); RBC Distribution Width CV 12.9 % (11.6-14.6); RBC Distribution Width SD 40.2 fl (35.1-43.9); Red Blood Count 5.04 M/mm3 (4.6-6.2); White Blood Count 6.9 K/mm3 (4.4-11.0)
[2021-03-08 04:03] LABS: ALB/GLOB Ratio 0.7 RATIO (0.9-2.4); AST(SGOT) 25 U/L (15-37); Alanine Aminotransfer ALT/SGPT 31 U/L (16-61); Alkaline Phosphatase 83 U/L (45-117); Anion Gap 8 (5-15); BUN 14 mg/dL (7-18); BUN/Creat Ratio 16.2 RATIO (10-20); Calcium,Total 8.7 mg/dL (8.5-10.1); Chloride 100 mmol/L (98-107); Creatinine, Serum 0.86 mg/dL (0.70-1.30); EST Glomerular Filtration Rate 110 mL/min (>60); Est Glom Filt Rate - Afr Amer 133 mL/min (>60); Estimated Creatinine Clearance 120.41 ml/min; Globulin 4.2 g/dL (2.2-4.2); Glucose 210 mg/dL (74-106); Potassium 3.6 mmol/L (3.5-5.1); Protein, Total 7.2 g/dL (6.4-8.2); Sodium Level 137 mmol/L (136-145)
--- NOTE | 2021-03-08 06:04 | PCM.PN.INT ---
Assessment & Plan Assessment/Plan (1) Acute hypoxemic respiratory failure: (2) COVID-19: PLAN: RECOMMENDATIONS: 1. Wean supplemental oxygen to maintain saturations at or above 90%. 2. Continue Decadron to complete 10-day treatment course. 3. Continue remdesivir as ordered. Continue to monitor liver and renal function. 4. Continue Lovenox as ordered. 5. Encourage incentive spirometer use and mobilize patient as tolerated. 6. Ambulate patient and if able to maintain appropriate oxygen saturations on 6 L/min or less, he could be discharged home to finish up his treatment course of Decadron. IMPRESSIONS: 1. Acute hypoxemic respiratory failure secondary to COVID-19 pneumonia The patient presented to the hospital with Covid-like symptoms which began within the last week. Chest imaging did reveal bilateral infiltrates and the patient subsequently tested positive for coronavirus. The patient will be continued on supplemental oxygen with a goal to maintain saturations at or above 90%. Plan to continue Decadron to complete 10-day treatment course. Continue remdesivir as ordered. Continue to monitor liver and renal function. Continue twice daily dosing of Lovenox. 2. Obesity/diabetes mellitus Complicates care, management, recovery and prognosis. Continue home medications as indicated. CODE status: Discussed CODE status at length including difference between FULL code, DNR-CCA and DNR-CC status. Following discussions about the differences in these status, patient requested FULL CODE STATUS. This note was generated with [employer] dictation software. It may contain incorrect words, spelling, and punctuation that were not noted in checking the note before signing. Subjective Subjective The patient was seen and examined at the bedside this morning. Events from the last 24 hours have been reviewed. The patient is currently afebrile, hemodynamically stable and maintaining appropriate oxygen saturations on 3 L/min via nasal cannula. The patient is currently documented to be overall net +3.3 L for the hospital admission. He remains on remdesivir, Decadron and twice daily Lovenox. Liver and renal function are stable. The patient is anxious to be discharged home. Objective Data Objective Data The patient's most recent lab work, culture data and imaging studies have all been personally reviewed. Vital Signs: Vital Signs Temp Pulse Resp BP Pulse Ox 97.5 F L 89 22 H 123/81 H 98 03/08/21 05:07 03/08/21 05:07 03/08/21 05:07 03/08/21 05:07 03/08/21 05:07 Oxygen Flow Rate (L/min) 3 Oxygen Delivery Method Nasal Cannula Weight: 253 lb 8.505 oz Body Mass Index (BMI) 38.5 Intake & Output: Intake and Output for Last 24 Hours 03/06/21 03/07/21 03/08/21 23:59 23:59 23:59 Intake Total 2640.00 / 2640.00 1600 / 1600 250 / 250 Output Total 1300 / 1300 1100 / 1100 375 / 375 Balance 1340.00 / 1340.00 500 / 500 -125 / -125 Lab / Micro Data Attestation: I reviewed the patient's lab results. Result Diagrams: 03/08/21 03:35 03/08/21 03:35 Labs: Laboratory Results - last 24 hr 03/07/21 03/07/21 03/07/21 06:01 11:52 16:02 WBC RBC Hgb Hct MCV MCH MCHC RDW Std Deviation RDW Coeff of Aime Plt Count MPV Sodium Potassium Chloride Carbon Dioxide Anion Gap BUN Creatinine Estim Creat Clear Calc Est GFR (MDRD) Af Amer Est GFR (MDRD) Non-Af BUN/Creatinine Ratio Glucose Calcium Total Bilirubin AST ALT Alkaline Phosphatase Total Protein Albumin Globulin Albumin/Globulin Ratio POC Glucose 197 H 328 H 323 H 03/07/21 03/08/21 03/08/21 22:18 03:35 03:35 WBC 6.9 RBC 5.04 Hgb 14.5 Hct 43.3 MCV 85.9 MCH 28.8 MCHC 33.5 RDW Std Deviation 40.2 RDW Coeff of Aime 12.9 Plt Count 246 MPV 9.2 Sodium 137 Potassium 3.6 Chloride 100 Carbon Dioxide 29.0 Anion Gap 8 BUN 14 Creatinine 0.86 Estim Creat Clear Calc 120.41 Est GFR (MDRD) Af Amer 133 Est GFR (MDRD) Non-Af 110 BUN/Creatinine Ratio 16.2 Glucose 210 H Calcium 8.7 Total Bilirubin 0.70 AST 25 ALT 31 Alkaline Phosphatase 83 Total Protein 7.2 Albumin 3.0 L Globulin 4.2 Albumin/Globulin Ratio 0.7 L POC Glucose 274 H Micro: Microbiology 03/05/21 00:55 Nasal Secretion SARS-CoV-2 Antigen (Rapid) - Final Physical Exam Const alert General Appearance: cooperative and ill appearing Nutritional Appearance: obese HEENT normocephalic, head/scalp atraumatic and moist oral mucous membranes Eyes PERRL, EOMs intact bilaterally and conjunctivae normal Neck supple General: trachea midline Resp Effort and Inspection: able to speak in complete sentences Auscultation: diminished lung sounds; Negative for rales, rhonchi or wheezes Cardio regular rate and regular rhythm GI normal to inspection, nondistended, normoactive bowel sounds Extremity no clubbing, cyanosis or edema Skin no rashes or lesions noted Neuro oriented x3, CN's II-XII intact bilaterally and moves all extremities Psych cooperative and affect normal Charges/Coding Visit Charges Inpatient E&M: 23425 Subs Hosp L2
[2021-03-08] MEDS: Insulin Lispro 100 UNIT/ML INSULN.PEN SC ×4 (08:09→22:24)
[2021-03-08] MEDS: dexAMETHasone 2 MG TABLET 6 MG PO (08:11)
[2021-03-08] MEDS: Enoxaparin 40 MG/0.4 ML Syringe SC ×2 (08:11→21:53)
[2021-03-08] MEDS: 0.9% Saline Lock 10 ML Syringe IV ×2 (08:12→21:54)
[2021-03-08] MEDS: metFORMIN HCl 500 MG Tablet PO ×2 (08:12→16:30)
[2021-03-08 09:00] LABS: Bedside Glucose 201 mg/dL (70-110)
--- NOTE | 2021-03-08 09:39 | PN.HOSP_ITS ---
Subjective Subjective Patient seen and examined. He is down to 3L of oxygen. He is feeling better, and review of systems is otherwise negative. He has remained dynamically stable. Objective Data Objective Data Vital Signs: Vital Signs Temp Pulse Resp BP Pulse Ox 97.3 F L 82 20 H 126/77 H 95 03/08/21 08:15 03/08/21 08:15 03/08/21 08:15 03/08/21 08:15 03/08/21 08:15 Oxygen Flow Rate (L/min) 3 Oxygen Delivery Method Nasal Cannula Weight: 253 lb 8.505 oz Body Mass Index (BMI) 38.5 Intake & Output: Intake and Output for Last 24 Hours 03/06/21 03/07/21 03/08/21 23:59 23:59 23:59 Intake Total 2640.00 / 2640.00 1600 / 1600 250 / 250 Output Total 1300 / 1300 1100 / 1100 375 / 375 Balance 1340.00 / 1340.00 500 / 500 -125 / -125 Lab / Micro Data Result Diagrams: 03/08/21 03:35 03/08/21 03:35 Labs: Laboratory Results - last 24 hr 03/07/21 03/07/21 03/07/21 11:52 16:02 22:18 WBC RBC Hgb Hct MCV MCH MCHC RDW Std Deviation RDW Coeff of Aime Plt Count MPV Sodium Potassium Chloride Carbon Dioxide Anion Gap BUN Creatinine Estim Creat Clear Calc Est GFR (MDRD) Af Amer Est GFR (MDRD) Non-Af BUN/Creatinine Ratio Glucose Calcium Total Bilirubin AST ALT Alkaline Phosphatase Total Protein Albumin Globulin Albumin/Globulin Ratio POC Glucose 328 H 323 H 274 H 03/08/21 03/08/21 03/08/21 03:35 03:35 08:08 WBC 6.9 RBC 5.04 Hgb 14.5 Hct 43.3 MCV 85.9 MCH 28.8 MCHC 33.5 RDW Std Deviation 40.2 RDW Coeff of Aime 12.9 Plt Count 246 MPV 9.2 Sodium 137 Potassium 3.6 Chloride 100 Carbon Dioxide 29.0 Anion Gap 8 BUN 14 Creatinine 0.86 Estim Creat Clear Calc 120.41 Est GFR (MDRD) Af Amer 133 Est GFR (MDRD) Non-Af 110 BUN/Creatinine Ratio 16.2 Glucose 210 H Calcium 8.7 Total Bilirubin 0.70 AST 25 ALT 31 Alkaline Phosphatase 83 Total Protein 7.2 Albumin 3.0 L Globulin 4.2 Albumin/Globulin Ratio 0.7 L POC Glucose 201 H Micro: Microbiology 03/05/21 00:55 Nasal Secretion SARS-CoV-2 Antigen (Rapid) - Final Physical Exam Const alert, oriented x3, no apparent distress and healthy appearing General Appearance: cooperative, well kempt and well developed Orientation / Consciousness: awake, oriented to person, oriented to place and oriented to time Exam Limitations: no limitations HEENT normocephalic, head/scalp atraumatic and moist oral mucous membranes Head and Scalp: normocephalic Eyes PERRL, EOMs intact bilaterally and conjunctivae normal Neck nuchal rigidity, no lymphadenopathy, supple, no JVD, thyroid normal and no carotid bruits General: trachea midline Resp normal respiratory effort, no retractions and no use of accessory muscles Resp Narrative: mildly diminished breath sounds bibasally, no wheezes or crackles. now on 4.5L of oxygen. Auscultation: crackles bilateral and rales; Negative for rhonchi or wheezes Cardio regular rate, regular rhythm, S1 normal heart sound, S2 normal heart sound, no murmurs, no rub and no gallops GI normal to inspection, nondistended, normoactive bowel sounds, soft to palpation, non-tender and non-distended Extremity normal to inspection, full ROM and no clubbing, cyanosis or edema Skin no rashes or lesions noted, no wounds, skin turgor normal and no jaundice General Skin Exam: no breakdown Neuro oriented x3, CN's II-XII intact bilaterally, no focal motor deficits and no sensory deficits noted Sensorium / Orientation: awake and alert Speech: speech normal Motor Exam: strength 5/5 throughout Psych thought process normal and affect normal Assessment & Plan Assessment/Plan (1) Hypoxia: (2) COVID-19: PLAN: #Acute hypoxic respiratory failure due to COVID 19 infection * down to 3L of oxygen today. on remdesivir and decadron * consult critical care * titrate oxygen to maintain sats >90% * ID on board * #Type 2 diabetes mellitus * Insulin sliding scale. Accu-Cheks AC at bedtime. * A1c is 8.3. on PO metformin * DVT prophylaxis: On Lovenox Disposition: for likely DC home tomorrow. Charges/Coding Visit Charges Inpatient E&M: 04300 Subs Hosp L2
[2021-03-08 14:11] LABS: Bedside Glucose 335 mg/dL (70-110)
[2021-03-08 16:45] LABS: Bedside Glucose 254 mg/dL (70-110)
[2021-03-08 22:35] LABS: Bedside Glucose 241 mg/dL (70-110)
[2021-03-09] VITALS (9 sets, daily range): BP systolic 99–113; BP diastolic 53–80; PULSE 65–91; RESP 15–20; TEMP 36.1–36.4; O2SAT 90–97
[2021-03-09 04:43] LABS: Hematocrit 42.9 % (40-54); Hemoglobin 14.5 g/dL (13.0-16.5); Mean Corp Hgb Conc 33.8 g/dL (32-36); Mean Corpuscular Hgb 28.9 pg (27.0-32.0); Mean Corpuscular Volume 85.5 fL (80-94); Mean Platelet Vol. 9.2 fl (6.2-12.0); Platelet Count 255 K/mm3 (150-450); RBC Distribution Width CV 12.7 % (11.6-14.6); RBC Distribution Width SD 39.6 fl (35.1-43.9); Red Blood Count 5.02 M/mm3 (4.6-6.2); White Blood Count 8.5 K/mm3 (4.4-11.0)
[2021-03-09 05:06] LABS: ALB/GLOB Ratio 0.8 RATIO (0.9-2.4); AST(SGOT) 34 U/L (15-37); Alanine Aminotransfer ALT/SGPT 55 U/L (16-61); Albumin, Serum 3.1 g/dL (3.2-5.0); Alkaline Phosphatase 78 U/L (45-117); Anion Gap 7 (5-15); BUN 16 mg/dL (7-18); Calcium,Total 8.7 mg/dL (8.5-10.1); Chloride 100 mmol/L (98-107); Creatinine, Serum 0.94 mg/dL (0.70-1.30); EST Glomerular Filtration Rate 99 mL/min (>60); Est Glom Filt Rate - Afr Amer 120 mL/min (>60); Estimated Creatinine Clearance 110.16 ml/min; Glucose 227 mg/dL (74-106); Potassium 3.6 mmol/L (3.5-5.1); Protein, Total 7.1 g/dL (6.4-8.2); Sodium Level 137 mmol/L (136-145)
--- NOTE | 2021-03-09 06:43 | PN.CC_ITS ---
Assessment & Plan Assessment/Plan (1) Acute hypoxemic respiratory failure: (2) COVID-19: PLAN: RECOMMENDATIONS: 1. Wean supplemental oxygen to maintain saturations at or above 90%. 2. Continue Decadron to complete 10-day treatment course. 3. Continue remdesivir as ordered. Continue to monitor liver and renal function. 4. Continue Lovenox as ordered. 5. Encourage incentive spirometer use and mobilize patient as tolerated. 6. Ambulate patient and if able to maintain appropriate oxygen saturations on 6 L/min or less, he could be discharged home to finish up his treatment course of Decadron. 7. Will sign off from a pulmonary/critical care perspective. Please call with any additional questions. IMPRESSIONS: 1. Acute hypoxemic respiratory failure secondary to COVID-19 pneumonia The patient presented to the hospital with Covid-like symptoms which began within the last week. Chest imaging did reveal bilateral infiltrates and the patient subsequently tested positive for coronavirus. The patient will be continued on supplemental oxygen with a goal to maintain saturations at or above 90%. Plan to continue Decadron to complete 10-day treatment course. Continue remdesivir as ordered. Continue to monitor liver and renal function. Continue twice daily dosing of Lovenox. 2. Obesity/diabetes mellitus Complicates care, management, recovery and prognosis. Continue home medications as indicated. CODE status: Discussed CODE status at length including difference between FULL code, DNR-CCA and DNR-CC status. Following discussions about the differences in these status, patient requested FULL CODE STATUS. This note was generated with [employer] dictation software. It may contain incorrect words, spelling, and punctuation that were not noted in checking the note before signing. Subjective Subjective The patient was seen and examined at the bedside this morning. Events from the last 24 hours have been reviewed. The patient is currently afebrile, hemodynamically stable and maintaining appropriate oxygen saturations on 2 L/min via nasal cannula. The patient is currently documented to be overall net +2.4 L for the hospital admission. He remains on remdesivir, Decadron and twice daily Lovenox. Liver and renal function are stable. Breathing quality has overall improved. Objective Data Objective Data The patient's most recent lab work, culture data and imaging studies have all been personally reviewed. Vital Signs: Vital Signs Temp Pulse Resp BP Pulse Ox 97.6 F L 65 18 108/70 94 03/09/21 03:00 03/09/21 03:19 03/09/21 03:30 03/09/21 03:00 03/09/21 03:30 Oxygen Flow Rate (L/min) 2 Oxygen Delivery Method Nasal Cannula Weight: 253 lb 8.505 oz Body Mass Index (BMI) 38.5 Intake & Output: Intake and Output for Last 24 Hours 03/07/21 03/08/21 03/09/21 23:59 23:59 23:59 Intake Total 1600 / 1600 1122 / 1122 Output Total 1100 / 1100 1775 / 1775 300 / 300 Balance 500 / 500 -653 / -653 -300 / -300 Lab / Micro Data Attestation: I reviewed the patient's lab results. Result Diagrams: 03/09/21 04:25 03/09/21 04:25 Labs: Laboratory Results - last 24 hr 03/08/21 03/08/21 03/08/21 08:08 11:39 16:22 WBC RBC Hgb Hct MCV MCH MCHC RDW Std Deviation RDW Coeff of Aime Plt Count MPV Sodium Potassium Chloride Carbon Dioxide Anion Gap BUN Creatinine Estim Creat Clear Calc Est GFR (MDRD) Af Amer Est GFR (MDRD) Non-Af BUN/Creatinine Ratio Glucose Calcium Total Bilirubin AST ALT Alkaline Phosphatase Total Protein Albumin Globulin Albumin/Globulin Ratio POC Glucose 201 H 335 H 254 H 03/08/21 03/09/21 03/09/21 22:23 04:25 04:25 WBC 8.5 RBC 5.02 Hgb 14.5 Hct 42.9 MCV 85.5 MCH 28.9 MCHC 33.8 RDW Std Deviation 39.6 RDW Coeff of Aime 12.7 Plt Count 255 MPV 9.2 Sodium 137 Potassium 3.6 Chloride 100 Carbon Dioxide 30.0 Anion Gap 7 BUN 16 Creatinine 0.94 Estim Creat Clear Calc 110.16 Est GFR (MDRD) Af Amer 120 Est GFR (MDRD) Non-Af 99 BUN/Creatinine Ratio 17.0 Glucose 227 H Calcium 8.7 Total Bilirubin 0.80 AST 34 ALT 55 Alkaline Phosphatase 78 Total Protein 7.1 Albumin 3.1 L Globulin 4.0 Albumin/Globulin Ratio 0.8 L POC Glucose 241 H Micro: Microbiology 03/05/21 00:55 Nasal Secretion SARS-CoV-2 Antigen (Rapid) - Final Physical Exam Const alert and no apparent distress General Appearance: cooperative Nutritional Appearance: obese HEENT normocephalic, head/scalp atraumatic and moist oral mucous membranes Eyes PERRL, EOMs intact bilaterally and conjunctivae normal Neck supple General: trachea midline Resp Effort and Inspection: able to speak in complete sentences Auscultation: diminished lung sounds; Negative for rales, rhonchi or wheezes Cardio regular rate, regular rhythm, S1 normal heart sound and S2 normal heart sound Heart Sounds: Negative for murmur GI normal to inspection, nondistended, normoactive bowel sounds Extremity no clubbing, cyanosis or edema Skin no rashes or lesions noted Neuro oriented x3, CN's II-XII intact bilaterally and moves all extremities Psych cooperative and affect normal Charges/Coding Visit Charges Inpatient E&M: 11910 Subs Hosp L2
[2021-03-09] MEDS: Insulin Lispro 100 UNIT/ML INSULN.PEN SC ×2 (07:55→11:52)
[2021-03-09] MEDS: dexAMETHasone 2 MG TABLET 6 MG PO (07:57)
[2021-03-09] MEDS: metFORMIN HCl 500 MG Tablet PO (07:57)
[2021-03-09] MEDS: Enoxaparin 40 MG/0.4 ML Syringe SC (07:57)
[2021-03-09 11:21] LABS: Bedside Glucose 207 mg/dL (70-110)
--- NOTE | 2021-03-09 11:47 | DS.PCM_ITS ---
Providers Date of Admission: 03/05/21 Primary Care Physician: Jenny Primary Care Phys Consultations 03/06/21 07:23 Consult: Fall Intern / Pulmonary Medicine Routine Consulting Provider: Pulmonary Medicine monica Lozano Reason for Consult: acute hypoxic respiratory failure due to covid EMERGENT Consult: No Notified: Yes Date Notified:: 03/06/21 Time Notified: 07:23 Method of Notification: Text 03/06/21 07:29 Consult: Infectious Disease Routine Consulting Provider: Jaquan Prasad Reason for Consult: covid 19 infection EMERGENT Consult: No Notified: Yes Date Notified:: 03/06/21 Time Notified: 07:29 Method of Notification: Text Reason For Visit: COVID 19 PNEUMONIA Diagnosis Discharge Diagnosis (1) Acute hypoxemic respiratory failure: Status: Acute Code(s): J96.01 - Acute respiratory failure with hypoxia (2) COVID-19: Status: Acute Code(s): U07.1 - COVID-19 Medications at Discharge Home Medications apixaban [Eliquis] 2.5 mg PO BID 14 Days #28 tab 03/09/21 dexamethasone 6 mg PO DAILY #5 tab 03/09/21 metformin 500 mg PO BIDCM #60 tab 03/09/21 Hospital Course Operations None Procedures None Summary of Care Provided Minutes Spent on Discharge: 40 Hospital Course: Patient is a 30-year-old male with a past medical history as outlined was admitted through the ED on 03/05/2021 with a complaint of fever, nonproductive cough and vomiting and symptoms are started about 3 days prior to admission. Chest x-ray done on admission showed bilateral infiltrates and Covid rapid antigen test done was positive. CBC was essentially unremarkable. He was admitted and managed for acute hypoxic respiratory insufficiency due to COVID-19 infection. He was requiring 2 L of oxygen at time of admission to [facility] saturation above 90%. He was started on Decadron and remdesivir. ID was consulted. Critical care was also consulted. Patient's hospital course was complicated by increasing oxygen requirements and at its peak, he required about 4.5 L of oxygen. His oxygen requirements gradually improved until he was on only 2 L of oxygen on the day of discharge and was successfully weaned off of this. He had walking pulse ox which showed that with ambulation on room air, his saturation was 90% so he did not require home oxygen. Patient was discharged home on 03/09/2021 was discharged with a course of Decadron to complete a 10-day course. He is to remain in self-isolation until March 19, 2020. Of note, patient was also started on p.o. Metformin on account of elevated A1c of 8.3 leading to diagnosis of type 2 diabetes mellitus. Also, patient's D-dimer was elevated on admission and he was not on 40 mg twice daily during admission. He was therefore discharged on p.o. Eliquis 2.5 mg twice daily for 14 days as thromboprophylaxis for Covid. Patient seen and examined prior to discharge. He felt well and had no complaints. Review of systems otherwise negative. Labs and vitals reviewed. Home medication reviewed and reconciled. Physical Exam Const alert, oriented x3, no apparent distress and healthy appearing General Appearance: cooperative, comfortable, well kempt and well developed Orientation / Consciousness: awake, oriented to person, oriented to place and oriented to time Exam Limitations: no limitations HEENT normocephalic, head/scalp atraumatic and moist oral mucous membranes Eyes PERRL, EOMs intact bilaterally and conjunctivae normal Neck nuchal rigidity, no lymphadenopathy, supple, no JVD, thyroid normal and no carotid bruits General: trachea midline Resp normal respiratory effort, no retractions and no use of accessory muscles Auscultation: crackles bilateral and rales; Negative for rhonchi or wheezes Cardio regular rate, regular rhythm, S1 normal heart sound, S2 normal heart sound, no murmurs, no rub and no gallops GI normal to inspection, nondistended, normoactive bowel sounds, soft to palpation, non-tender and non-distended Extremity normal to inspection, full ROM and no clubbing, cyanosis or edema Skin no rashes or lesions noted, no wounds, skin turgor normal and no jaundice General Skin Exam: no breakdown Neuro oriented x3, CN's II-XII intact bilaterally, no focal motor deficits and no sensory deficits noted Sensorium / Orientation: awake and alert Speech: speech normal Motor Exam: strength 5/5 throughout Psych thought process normal and affect normal ABG / Lab / Microbiology Data Result Diagrams: 03/09/21 04:25 03/09/21 04:25 Laboratory: Laboratory Results - last 24 hr 03/08/21 03/08/21 03/08/21 11:39 16:22 22:23 WBC RBC Hgb Hct MCV MCH MCHC RDW Std Deviation RDW Coeff of Aime Plt Count MPV Sodium Potassium Chloride Carbon Dioxide Anion Gap BUN Creatinine Estim Creat Clear Calc Est GFR (MDRD) Af Amer Est GFR (MDRD) Non-Af BUN/Creatinine Ratio Glucose Calcium Total Bilirubin AST ALT Alkaline Phosphatase Total Protein Albumin Globulin Albumin/Globulin Ratio POC Glucose 335 H 254 H 241 H 03/09/21 03/09/21 03/09/21 04:25 04:25 07:55 WBC 8.5 RBC 5.02 Hgb 14.5 Hct 42.9 MCV 85.5 MCH 28.9 MCHC 33.8 RDW Std Deviation 39.6 RDW Coeff of Aime 12.7 Plt Count 255 MPV 9.2 Sodium 137 Potassium 3.6 Chloride 100 Carbon Dioxide 30.0 Anion Gap 7 BUN 16 Creatinine 0.94 Estim Creat Clear Calc 110.16 Est GFR (MDRD) Af Amer 120 Est GFR (MDRD) Non-Af 99 BUN/Creatinine Ratio 17.0 Glucose 227 H Calcium 8.7 Total Bilirubin 0.80 AST 34 ALT 55 Alkaline Phosphatase 78 Total Protein 7.1 Albumin 3.1 L Globulin 4.0 Albumin/Globulin Ratio 0.8 L POC Glucose 207 H Microbiology: Microbiology 03/05/21 00:55 Nasal Secretion SARS-CoV-2 Antigen (Rapid) - Final D/C Instructions Discharge Diet: 1800 Calorie Control Diet Discharge Activity: Return to Normal Activity Weight Bearing Status: Weight bearing as tolerated Call your doctor if you observe: Fever of 101 or Higher, Shortness of breath, Swelling in the ankles and Chest pain Additional Instructions: remain in self isolation till March 19, 2021 Meaningful Use Info Meaningful Use Diagnoses (Choose all that apply): None applicable Discharge Plan Admission Admit Date/Time: 03/05/21 05:10 Primary Reason for Your Visit: covid 19 infection Attending Provider: Veronica Ritchie Primary Care Provider: Care Physician,No Primary Consulting Providers: Elmer Calderon ; Jordy Heart ; Alayna Sutherland NP ; Jaquan Prasad Instructions Patient Instructions: Coronavirus Disease 2019 (COVID-19): Overview, Coronavirus Disease 2019 (COVID-19): Caring for Yourself or Others Additional Instructions / Restrictions: remain in self isolation till 03/19/2021 Discharge Orders/Prescriptions Prescriptions: New metformin 500 mg Tablet 500 mg PO BIDCM Qty: 60 RF: 1 dexamethasone 2 mg Tablet 6 mg PO DAILY Qty: 5 RF: 0 Eliquis 2.5 mg tablet 2.5 mg PO BID 14 Days Qty: 28 RF: 0 Referrals / Follow Up: Areli Damico MD [STAFF PHYSICIAN] - Within 2 Weeks (call office to set up PCP appointment) Care Physician,No Primary [Primary Care Provider] - Disposition Disposition (needs filled in before D/C Order can be placed): Home, self care Charges/Coding Visit Charges Inpatient E&M: 81848 Disch Hosp
[2021-03-09 13:01] LABS: Bedside Glucose 313 mg/dL (70-110)
--- NOTE | 2021-03-10 15:48 | CASEMGMT ---
COVID Follow up Telephone Call RN PATO made telephone call to patient. Pt states he is doing well. He is aware of the need to quarantine until 03/19/21. Pt does have a family member who can obtain groceries for him. Pt denies questions regarding his medications or dc instructions. He states he does not feel short of breath. Pt expressed a concern regarding hospital stay and would like to speak to patient advocate. He is aware the patient advocate will be in touch. No further needs identified.
== END 2021-03-09 13:00 | disposition home or self-care (01) | DRG 177 ==
LOC: ED 03-05 04:44 → ICU 03-05 05:27
PROVIDERS: Internal Medicine Critical Care Medicine; Internal Medicine Infectious Disease; Admitting Provider Internal Medicine; Emergency Provider Emergency Medicine; Visit Provider Student in an Organized Health Care Education/Training Program
DX: U07.1 COVID-19 (principal); J12.82 Pneumonia due to coronavirus disease 2019; J96.01 Acute respiratory failure with hypoxia; E11.9 Type 2 diabetes mellitus without complications; E66.9 Obesity, unspecified; Z68.38 Body mass index [BMI] 38.0-38.9, adult
CPT/HCPCS: 71045; 80053; 82962; 83036; 83690; 84145; 85025; 85027; 85379; 87426; 87635; 97803; 99284; J7030; J7050; U0005; A4216; J2405; U0003

== ENCOUNTER → 2022-05-26 | Outpatient (CLI) | payer BC, SELFPAY ==
[2022-05-26 10:21] LABS: AST(SGOT) 29 U/L (15-37); Alanine Aminotransfer ALT/SGPT 52 U/L (16-61)
== END | disposition home or self-care (01) ==
LOC: LAB 09:11
PROVIDERS: Referring Provider Podiatrist; Visit Provider Podiatrist
DX: B35.1 Tinea unguium (principal)
CPT/HCPCS: 36415; 84450; 84460

== ENCOUNTER → 2022-12-28 | Outpatient (CLI) | payer BC, SELFPAY ==
[2022-12-28 10:01] LABS: Hematocrit 49.9 % (40-54); Hemoglobin 17.2 g/dL (13.0-16.5); Mean Corp Hgb Conc 34.5 g/dL (32-36); Mean Corpuscular Hgb 29.7 pg (27.0-32.0); Mean Platelet Vol. 9.7 fl (6.2-12.0); Platelet Count 235 K/mm3 (150-450); RBC Distribution Width CV 12.9 % (11.6-14.6); RBC Distribution Width SD 39.7 fl (35.1-43.9); White Blood Count 8.6 K/mm3 (4.4-11.0)
[2022-12-28 10:36] LABS: Hemoglobin A1c 8.8 % (3.8-5.6)
[2022-12-28 10:43] LABS: ALB/GLOB Ratio 0.9 RATIO (0.9-2.4); AST(SGOT) 29 U/L (15-37); Alanine Aminotransfer ALT/SGPT 54 U/L (16-61); Albumin, Serum 3.8 g/dL (3.2-5.0); Alkaline Phosphatase 87 U/L (45-117); Anion Gap 6 (5-15); BUN 13 mg/dL (7-18); BUN/Creat Ratio 13.8 RATIO (10-20); Calcium,Total 9.4 mg/dL (8.5-10.1); Chloride 102 mmol/L (98-107); Creatinine, Serum 0.94 mg/dL (0.70-1.30); EST Glomerular Filtration Rate 98 mL/min (>60); Est Glom Filt Rate - Afr Amer 119 mL/min (>60); Globulin 4.1 g/dL (2.2-4.2); Glucose 237 mg/dL (74-106); Potassium 3.8 mmol/L (3.5-5.1); Protein, Total 7.9 g/dL (6.4-8.2); Sodium Level 136 mmol/L (136-145)
== END | disposition home or self-care (01) ==
LOC: LAB 09:01
PROVIDERS: Referring Provider Podiatrist; Visit Provider Podiatrist
DX: E11.9 Type 2 diabetes mellitus without complications (principal)
CPT/HCPCS: 36415; 80053; 83036; 85027